=== PATIENT | male | born 1975 | race Asian ===

== ENCOUNTER 2021-07-30 14:20 | Emergency (ER) | payer OTHER ==
[~2021-07-30] VITALS: Ht 172.7 cm; Wt 88.5 kg
[2021-07-30 14:27] VITALS: TEMP 99.1
[2021-07-30 15:39] LABS: PLATELET COUNT 288 K/uL (142-355)
[2021-07-30 17:30] VITALS: BP 122/67
== END 2021-07-30 18:15 | disposition short-term general hospital (02) ==
LOC: ED 14:20
PROVIDERS: Emergency Medicine
DX: G36.0 Neuromyelitis optica [Devic] (principal); Z11.52 Encounter for screening for COVID-19
CPT/HCPCS: 80048; 85027; 87635; 96365; 96375; 99285; J2930; J3490; U0003

== ENCOUNTER 2021-08-07 10:07 | Outpatient (CLI) | payer OTHER ==
[2021-08-07 10:41] LABS: PLATELET COUNT 289 K/uL (142-355)
[2021-08-07 11:18] LABS: POTASSIUM 3.5 mmol/L (3.6-5.2)
== END 2021-08-07 20:35 | disposition home or self-care (01) ==
LOC: LABW 10:07
PROVIDERS: ATTEND Psychiatry & Neurology Neurology
DX: E55.9 Vitamin D deficiency, unspecified (principal); E53.8 Deficiency of other specified B group vitamins; R63.5 Abnormal weight gain; R53.83 Other fatigue; Z79.899 Other long term (current) drug therapy; N40.0 Benign prostatic hyperplasia without lower urinary tract symptoms; G36.0 Neuromyelitis optica [Devic]
CPT/HCPCS: 36415; 80053; 80061; 82306; 82607; 82746; 83036; 83520; 84153; 84439; 84443; 84481; 85027

== ENCOUNTER 2022-01-18 14:05 | Outpatient (CLI) | payer OTHER | END 2022-01-18 18:55 | disposition home or self-care (01) | LOC: LABW 14:05 | PROVIDERS: ATTEND Psychiatry & Neurology Neurology | DX: G36.0 Neuromyelitis optica [Devic] (principal) | CPT/HCPCS: 36415; 83520 ==